=== PATIENT | female | born 1990 | race American Indian/Alaskan Native ===

== ENCOUNTER 2017-05-22 09:55 | Emergency (ER) | payer OTHER ==
[2017-05-22 11:24] LABS: Basophils % (Auto) 0.6 % (0.0-1.8); Eosinophils % (Auto) 0.7 % (0.0-4.3); Hemoglobin 11.9 gm/dl (10.1-14.3); Lymphocytes # (Auto) 1.7 K/mm3 (1.2-5.4); Lymphocytes % (Auto) 24.3 % (13.4-35.0); Monocytes # (Auto) 0.6 K/mm3 (0.0-0.8); Monocytes % (Auto) 9.1 % (0.0-7.3)
[2017-05-22 11:34] LABS: INR 0.9 (0.87-1.13)
[2017-05-22 11:36] LABS: Hematocrit 38.9 % (30.3-42.9); Mean Corpuscular HGB Conc 31 % (30-34); Mean Corpuscular Hemoglobin 21 pg (28-32); Mean Corpuscular Volume 69 fl (79-97); Platelet Count 395 K/mm3 (140-440); Red Blood Count 5.65 M/mm3 (3.65-5.03)
[2017-05-22 11:52] LABS: BUN/Creatinine Ratio 12; Blood Urea Nitrogen 11 mg/dL (7-17); Hemolysis Index 16
--- NOTE | 2017-05-22 12:09 | Emergency Department Report ---
ED Syncope HPI - General Chief Complaint: Syncope Stated Complaint: SYNCOPE Time Seen by Provider: 05/22/17 10:21 Source: patient Exam Limitations: no limitations - History of Present Illness Initial Comments: 27-year-old female with no significant past medical history presents to the hospital with complains of syncopal episode after a cardio workout. Patient has not worked out in 1 year. She did not have anything or eat or drink prior to her workout. She was a treadmill for 30 minutes without chest pain or shortness of breath. After her workout patient felt lightheaded and had a syncopal episode. She denies headache, chest pain, shortness of breath, abdominal pain, nausea, vomiting, heavy vaginal bleeding, melena, or hematochezia. Patient complains of generalized fatigue and weakness at this time without pain. No history of PE/DVT, calf tenderness, leg edema or asymmetry, or control pill use reported. Patient received approximately 600 mL of normal saline prior to arrival via EMS - Related Data Allergies/Adverse Reactions: Allergies No Known Allergies Allergy (Unverified 05/22/17 10:24) ED Review of Systems ROS: Stated complaint: SYNCOPE Other details as noted in HPI Comment: All other systems reviewed and negative Other: Constitutional: No fevers chill Eyes: No eye pain visual changes ENT: No ear pain or throat pain Neck: Denies pain Respiratory: Denies cough wheezing shortness of breath Cardiovascular: Denies chest pain, palpitations GI: Denies abdominal pain, nausea, vomiting, diarrhea : Denies dysura Musculoskeletal: Denies back pain, joint swelling Skin: Denies rash, lesions, erythema Neurologic: Denies headache, numbness, weakness Psychiatric: Denies suicidal ideation, hallucinations ED Past Medical Hx - Past Medical History Previous Medical History?: Yes Hx Hypertension: Yes - Social History Smoking Status: Never Smoker Substance Use Type: None ED Physical Exam - General Limitations: No Limitations - Other Other exam information: General: No limitations, patient is alert in no acute distress Head exam: Atraumatic, normocephalic Eyes exam: Normal appearance, pupils equal reactive to light ENT: Moist mucous membrane, normal oropharynx Neck exam: Normal inspection, full range of motion, no meningismus nontender Respiratory exam: Clear to auscultation bilateral, no wheezes, rales, crackles Cardiovascular: Normal rate and rhythm, normal heart sounds Abdomen: Soft, nondistended, and nontender, with normal bowel sounds, no rebound, or guarding Extremity: Full range of motion normal inspection no deformity Back: Normal Inspection, full range of motion, no tenderness Neurologic: Alert, oriented x3, cranial nerves intact, no motor or sensory deficit Psychiatric: normal affect, normal mood Skin: Warm, dry, intact ED Course Vital Signs 05/22/17 10:05 Temperature 97.9 F Pulse Rate 93 H Blood Pressure 107/84 O2 Sat by Pulse 99 Oximetry ED Medical Decision Making - Lab Data Result diagrams: 05/22/17 11:10 05/22/17 11:10 Lab Results 05/22/17 05/22/17 05/22/17 Range/Units 11:10 11:10 11:10 WBC 6.8 (4.5-11.0) K/mm3 RBC 5.65 H (3.65-5.03) M/mm3 Hgb 11.9 (10.1-14.3) gm/dl Hct 38.9 (30.3-42.9) % MCV 69 L (79-97) fl MCH 21 L (28-32) pg MCHC 31 (30-34) % RDW 15.0 (13.2-15.2) % Plt Count 395 (140-440) K/mm3 Lymph % (Auto) 24.3 (13.4-35.0) % [place] % (Auto) 9.1 H (0.0-7.3) % Eos % (Auto) 0.7 (0.0-4.3) % Baso % (Auto) 0.6 (0.0-1.8) % Lymph # 1.7 (1.2-5.4) K/mm3 [place] # 0.6 (0.0-0.8) K/mm3 Eos # 0.0 (0.0-0.4) K/mm3 Baso # 0.0 (0.0-0.1) K/mm3 Seg Neutrophils % 65.3 (40.0-70.0) % Seg Neutrophils # 4.4 (1.8-7.7) K/mm3 PT 12.6 (12.2-14.9) Sec. INR 0.90 (0.87-1.13) Sodium 136 L (137-145) mmol/L Potassium 4.2 (3.6-5.0) mmol/L Chloride 99.9 (98-107) mmol/L Carbon Dioxide 21 L (22-30) mmol/L Anion Gap 19 mmol/L BUN 11 (7-17) mg/dL Creatinine 0.9 (0.7-1.2) mg/dL Estimated GFR > 60 ml/min BUN/Creatinine Ratio 12 % Glucose 127 H (65-100) mg/dL Calcium 9.0 (8.4-10.2) mg/dL HCG, Qual (Negative) 05/22/17 Range/Units 11:10 WBC (4.5-11.0) K/mm3 RBC (3.65-5.03) M/mm3 Hgb (10.1-14.3) gm/dl Hct (30.3-42.9) % MCV (79-97) fl MCH (28-32) pg MCHC (30-34) % RDW (13.2-15.2) % Plt Count (140-440) K/mm3 Lymph % (Auto) (13.4-35.0) % [place] % (Auto) (0.0-7.3) % Eos % (Auto) (0.0-4.3) % Baso % (Auto) (0.0-1.8) % Lymph # (1.2-5.4) K/mm3 [place] # (0.0-0.8) K/mm3 Eos # (0.0-0.4) K/mm3 Baso # (0.0-0.1) K/mm3 Seg Neutrophils % (40.0-70.0) % Seg Neutrophils # (1.8-7.7) K/mm3 PT (12.2-14.9) Sec. INR (0.87-1.13) Sodium (137-145) mmol/L Potassium (3.6-5.0) mmol/L Chloride (98-107) mmol/L Carbon Dioxide (22-30) mmol/L Anion Gap mmol/L BUN (7-17) mg/dL Creatinine (0.7-1.2) mg/dL Estimated GFR ml/min BUN/Creatinine Ratio % Glucose (65-100) mg/dL Calcium (8.4-10.2) mg/dL HCG, Qual Negative (Negative) ua reviewed ddimer neg - EKG Data -: EKG Interpreted by Me EKG shows normal: sinus rhythm - Medical Decision Making Syncope Likely due to the fact that patient did not eat or drink anything prior to her first workout in 1 year. Symptoms improved with IV fluids (2 L NS) Tolerating ambulation in the ED without difficulty Tolerating by mouth intake and was fed prior to discharge ddimer neg - Differential Diagnosis anemia, dehydration, vasovagal, arrhythmia Critical Care Time: No Critical care attestation.: If time is entered above; I have spent that time in minutes in the direct care of this critically ill patient, excluding procedure time. ED Disposition Clinical Impression: Syncope, Dehydration Disposition: DC- TO HOME OR SELFCARE Is pt being admited?: No Does the pt Need Aspirin: No Condition: Stable Instructions: Dehydration (ED), Syncope (ED) Additional Instructions: Continue to drink plenty of fluids. Make sure you eat appropriately. Return if symptoms worsen Referrals: PRIMARY CARE, [Primary Care Provider] - 3-5 Days TYLER MANNING JR, MD [Staff Physician] - 3-5 Days (primary care doctor) Time of Disposition: 14:46
[2017-05-22 13:13] LABS: Bacteria,Urine 1+ /HPF (Negative); Bilirubin,Urine NEG (Negative); Blood,Urine NEG (Negative); Color,Urine Yellow (Yellow); Hyaline Casts,Urine 33 /LPF; Mucus,Urine 2+ /HPF; Urobilinogen,Urine < 2.0 mg/dL (<2.0)
[2017-05-22] MEDS ORDERED: NACL 0.9% 1000 ML 1,000 ML IV ONE (13:28)
[2017-05-22 15:00] VITALS: BP 118/86
== END 2017-05-22 15:01 | disposition home or self-care (01) ==
LOC: ED 09:55
DX: R55 Syncope and collapse (principal); E86.0 Dehydration; R53.1 Weakness; R53.83 Other fatigue; I10 Essential (primary) hypertension
CPT/HCPCS: 36415; 80048; 81001; 84703; 85025; 85379; 85610; 93005; 93010; 96360; 99284; J7030

== ENCOUNTER 2018-04-26 11:21 | Emergency (ER) | payer BC, OTHER ==
[2018-04-26 11:44] VITALS: BP 123/76
[2018-04-26] MEDS ORDERED: ROBITUSSIN PO ONE (11:46)
--- NOTE | 2018-04-26 11:47 | Emergency Department Report ---
Blank Doc - Documentation Documentation: 28 y o female PMH of HTN and depresseion contolled with medication cc of CP, SOB. yellow productive Cough x 1 week EXam: no acute, rsp distress CTAB, No use of assesory muscles, no wheezing Plan Cough suppresnt CXR EKG done: no acute finding FAstrack eval
--- NOTE | 2018-04-26 12:26 | XRay Report ---
ROUTINE CHEST, TWO VIEWS: HISTORY: Chest pain with cough. The trachea, heart, mediastinal contour, lung liu and bony thorax are unremarkable. IMPRESSION: Unremarkable chest x-ray.
--- NOTE | 2018-04-26 13:18 | Emergency Department Report ---
ED General Adult HPI - General Chief complaint: Chest Pain Stated complaint: SOB/CHEST PAIN/COUGH Time Seen by Provider: 04/26/18 11:41 Source: patient Mode of arrival: Ambulatory Limitations: No Limitations - History of Present Illness Initial comments: Patient presents to emergency department with a chief complaint of a cough since last . Patient describes the cough has been dry in nature and does endorse sick contacts or week ago. Patient states that she is coughing so bad at night that it's causing her chest to hurt. -: Gradual Severity scale (0 -10): 4 Quality: aching Consistency: constant Improves with: none Worsens with: none Associated Symptoms: denies other symptoms Treatments Prior to Arrival: other ([id number] medications) - Related Data Previous Rx's Medication Instructions Recorded Last Taken Type ALBUTEROL Inhaler (OR & NICU) 2 puff IH Q4HR PRN #1 inhalation 04/26/18 Unknown Rx [ProAir HFA Inhaler] Benzonatate [Tessalon Perles] 100 mg PO Q8HR PRN #20 capsule 04/26/18 Unknown Rx Ibuprofen [Motrin] 800 mg PO Q8HR PRN #30 tablet 04/26/18 Unknown Rx guaiFENesin/CODEINE [Robitussin AC] 5 ml PO Q12HR PRN #180 oral.liqd 04/26/18 Unknown Rx predniSONE [Deltasone] 20 mg PO DAILY #15 tablet 04/26/18 Unknown Rx traMADol [Ultram] 50 mg PO Q6HR PRN #24 tablet 04/26/18 Unknown Rx Allergies Allergy/AdvReac Type Severity Reaction Status Date / Time No Known Allergies Allergy Unverified 05/22/17 10:24 ED Review of Systems ROS: Stated complaint: SOB/CHEST PAIN/COUGH Other details as noted in HPI Comment: All other systems reviewed and negative Constitutional: denies: chills, fever Eyes: denies: eye pain, eye discharge, vision change ENT: denies: ear pain, throat pain Respiratory: cough. denies: shortness of breath, wheezing Cardiovascular: denies: chest pain, palpitations Endocrine: no symptoms reported Gastrointestinal: denies: abdominal pain, nausea, diarrhea Genitourinary: denies: urgency, dysuria, discharge Musculoskeletal: denies: back pain, joint swelling, arthralgia Skin: denies: rash, lesions Neurological: denies: headache, weakness, paresthesias Psychiatric: denies: anxiety, depression Hematological/Lymphatic: denies: easy bleeding, easy bruising ED Past Medical Hx - Past Medical History Previous Medical History?: Yes Hx Hypertension: Yes Hx Psychiatric Treatment: Yes (depression) - Surgical History Past Surgical History?: Yes Additional Surgical History: tonsilectomy - Social History Smoking Status: Never Smoker Substance Use Type: None - Medications Home Medications: Home Medications Medication Instructions Recorded Confirmed Last Taken Type ALBUTEROL Inhaler (OR & NICU) 2 puff IH Q4HR PRN #1 inhalation 04/26/18 Unknown Rx [ProAir HFA Inhaler] Benzonatate [Tessalon Perles] 100 mg PO Q8HR PRN #20 capsule 04/26/18 Unknown Rx Ibuprofen [Motrin] 800 mg PO Q8HR PRN #30 tablet 04/26/18 Unknown Rx guaiFENesin/CODEINE [Robitussin AC] 5 ml PO Q12HR PRN #180 oral.liqd 04/26/18 Unknown Rx predniSONE [Deltasone] 20 mg PO DAILY #15 tablet 04/26/18 Unknown Rx traMADol [Ultram] 50 mg PO Q6HR PRN #24 tablet 04/26/18 Unknown Rx ED Physical Exam - General Limitations: No Limitations General appearance: alert, in no apparent distress - Head Head exam: Present: atraumatic, normocephalic - Eye Eye exam: Present: normal appearance, PERRL, EOMI - ENT ENT exam: Present: mucous membranes moist - Neck Neck exam: Present: normal inspection - Respiratory Respiratory exam: Present: normal lung sounds bilaterally, wheezes. Absent: respiratory distress, rales - Cardiovascular Cardiovascular Exam: Present: regular rate, normal rhythm. Absent: systolic mu rmur, diastolic murmur, rubs, gallop - GI/Abdominal GI/Abdominal exam: Present: soft, normal bowel sounds. Absent: distended, tenderness - Extremities Exam Extremities exam: Present: normal inspection - Back Exam Back exam: Present: normal inspection - Neurological Exam Neurological exam: Present: alert, oriented X3, CN II-XII intact. Absent: motor sensory deficit - Psychiatric Psychiatric exam: Present: normal affect, normal mood - Skin Skin exam: Present: warm, dry, intact, normal color. Absent: rash ED Course Vital Signs 04/26/18 11:41 Temperature 98.4 F Pulse Rate 75 Respiratory 22 Rate Blood Pressure 123/76 O2 Sat by Pulse 99 Oximetry ED Medical Decision Making - Radiology Data Radiology results: report reviewed - Medical Decision Making Discussed results and plan of care with patient Critical care attestation.: If time is entered above; I have spent that time in minutes in the direct care of this critically ill patient, excluding procedure time. ED Disposition Clinical Impression: Bronchitis Disposition: DC-01 TO HOME OR SELFCARE Is pt being admited?: No Does the pt Need Aspirin: No Condition: Stable Instructions: Acute Bronchitis (ED) Additional Instructions: return if worse Referrals: SCOTT BECKMAN MD [Primary Care Provider] - 3-5 Days Time of Disposition: 13:17
== END 2018-04-26 13:28 | disposition home or self-care (01) ==
LOC: ED 11:21
DX: J40 Bronchitis, not specified as acute or chronic (principal); I10 Essential (primary) hypertension; F32.9 Major depressive disorder, single episode, unspecified
CPT/HCPCS: 71046; 93005; 93010

== ENCOUNTER 2018-12-18 23:00 | Emergency (ER) | payer BC ==
--- NOTE | 2018-12-19 00:47 | Emergency Department Report ---
ED Back Pain/Injury HPI - General Chief Complaint: Back Pain/Injury Stated Complaint: LT SIDE PAIN LOWER BACK PAIN 11 WEEKS PREG Time Seen by Provider: 12/19/18 00:44 Source: patient Limitations: No Limitations - History of Present Illness Initial Comments: 28 year old -Dominican female who reports she is 11 weeks comes in acute on onset of left pain that radiates to her left abdomen and down her left leg. Patient denies any vaginal bleeding no injury no dysuria no blood in the urine. Patient is 1 para 0. She reports that the pain is crampy stabbing and constant. Her last menstrual period was 09/20/2018. Patient has no allergies to medications. She denies any injury. MD Complaint: back pain -: This evening Time: 17:00 Similar Symptoms Previously: No Radiation: abdomen Severity: severe Severity scale (0 -10): 10 Quality: sharp, stabbing Consistency: constant Improves With: none Worsens With: none Associated Symptoms: nausea/vomiting - Related Data Previous Rx's Medication Instructions Recorded Last Taken Type ALBUTEROL Inhaler (OR & NICU) 2 puff IH Q4HR PRN #1 inhalation 04/26/18 Unknown Rx [ProAir HFA Inhaler] Benzonatate [Tessalon Perles] 100 mg PO Q8HR PRN #20 capsule 04/26/18 Unknown Rx Ibuprofen [Motrin] 800 mg PO Q8HR PRN #30 tablet 04/26/18 Unknown Rx guaiFENesin/CODEINE [Robitussin AC] 5 ml PO Q12HR PRN #180 oral.liqd 04/26/18 Unknown Rx predniSONE [Deltasone] 20 mg PO DAILY #15 tablet 04/26/18 Unknown Rx traMADol [Ultram] 50 mg PO Q6HR PRN #24 tablet 04/26/18 Unknown Rx Acetaminophen [Acetaminophen ER] 650 mg PO Q6H PRN #24 tablet.er 12/19/18 Unknown Rx metroNIDAZOLE [Flagyl] 500 mg PO Q8HR #21 tab 12/19/18 Unknown Rx Allergies Allergy/AdvReac Type Severity Reaction Status Date / Time No Known Allergies Allergy Unverified 05/22/17 10:24 ED Review of Systems ROS: Stated complaint: LT SIDE PAIN LOWER BACK PAIN 11 WEEKS PREG Other details as noted in HPI Comment: All other systems reviewed and negative ED Past Medical Hx - Past Medical History Previous Medical History?: Yes Hx Hypertension: Yes Hx Psychiatric Treatment: Yes (depression) - Surgical History Past Surgical History?: Yes Additional Surgical History: tonsilectomy - Social History Smoking Status: Never Smoker Substance Use Type: None - Medications Home Medications: Home Medications Medication Instructions Recorded Confirmed Last Taken Type ALBUTEROL Inhaler (OR & NICU) 2 puff IH Q4HR PRN #1 inhalation 04/26/18 Unknown Rx [ProAir HFA Inhaler] Benzonatate [Tessalon Perles] 100 mg PO Q8HR PRN #20 capsule 04/26/18 Unknown Rx Ibuprofen [Motrin] 800 mg PO Q8HR PRN #30 tablet 04/26/18 Unknown Rx guaiFENesin/CODEINE [Robitussin AC] 5 ml PO Q12HR PRN #180 oral.liqd 04/26/18 Unknown Rx predniSONE [Deltasone] 20 mg PO DAILY #15 tablet 04/26/18 Unknown Rx traMADol [Ultram] 50 mg PO Q6HR PRN #24 tablet 04/26/18 Unknown Rx Acetaminophen [Acetaminophen ER] 650 mg PO Q6H PRN #24 tablet.er 12/19/18 Unknown Rx metroNIDAZOLE [Flagyl] 500 mg PO Q8HR #21 tab 12/19/18 Unknown Rx ED Physical Exam - General Limitations: No Limitations General appearance: alert, in no apparent distress - Head Head exam: Present: atraumatic, normocephalic - Eye Eye exam: Present: normal appearance - ENT ENT exam: Present: mucous membranes moist - Neck Neck exam: Present: normal inspection - Respiratory Respiratory exam: Present: normal lung sounds bilaterally. Absent: respiratory distress - GI/Abdominal GI/Abdominal exam: Present: soft, tenderness. Absent: distended - Back Exam Back exam: Present: full ROM, CVA tenderness (L). Absent: paraspinal tenderness, vertebral tenderness - Neurological Exam Neurological exam: Present: alert, oriented X3 - Psychiatric Psychiatric exam: Present: normal affect, normal mood - Skin Skin exam: Present: warm, dry, intact, normal color. Absent: rash ED Course Vital Signs 12/18/18 12/19/18 23:04 07:21 Temperature 98.0 F Pulse Rate 100 H 88 Respiratory 18 18 Rate Blood Pressure 132/91 Blood Pressure 130/88 [Left] O2 Sat by Pulse 100 100 Oximetry ED Medical Decision Making - Lab Data Result diagrams: 12/19/18 01:19 12/19/18 01:19 - Radiology Data Radiology results: report reviewed Patient: ANGEL MARTÍNEZ MR#: [id number] : 1990 Acct:[id number] Age/Sex: 28 / F ADM Date: 12/18/18 Loc: ED Attending Dr: Ordering Physician: PERNELL CHURCH Date of Service: 12/19/18 Procedure(s): US OB <= 14 weeks fetus Accession Number(s): [id number] cc: PERNELL CHURCH ULTRASOUND OBSTETRIC INDICATION / CLINICAL INFORMATION: abd pain. Pelvic pain and cramping. Clinical Gestational Age (GA): 12 weeks 6 days TECHNIQUE: Transabdominal. COMPARISON: None available. FINDINGS: GESTATIONAL SAC: Well-defined oval shape and intrauterine in location. YOLK SAC: Not visualized. EMBRYO/FETUS: No significant abnormality. - [place]-Rump Length = 5.9 cm = 12 weeks, 3 day(s). - Heart Rate, beats per minute (if present) = 160 ADNEXA: No significant abnormality. FREE FLUID: None. ADDITIONAL FINDINGS: None. IMPRESSION: 1. Single, living intrauterine with estimated sonographic age of 12 weeks, 3 day(s). Signer Name: Francisca Parish MD Signed: 12/19/2018 3:19 AM Workstation Name: [id number] Transcribed By: DT Dictated By: Triston Parish MD Electronically Authenticated By: Triston Parish MD Signed Date/Time: 12/19/18318 DD/ 6 TD/TT: Patient: ANGEL MARTÍNEZ MR#: [id number] : 1990 Acct:[id number] Age/Sex: 28 / F ADM Date: 12/18/18 Loc: ED Attending Dr: Ordering Physician: PERNELL CHURCH Date of Service: 12/19/18 Procedure(s): US renal LT Accession Number(s): [id number] cc: PERNELL CHURCH ULTRASOUND RENAL LIMITED INDICATION / CLINICAL INFORMATION: concern for renal stone left. Left flank pain. Patient is . COMPARISON: None available. FINDINGS: RIGHT KIDNEY: Not evaluated. LEFT KIDNEY: Length = 10.9 cm. - Echogenicity: Normal. - Cortical Thickness: Normal. - Hydronephrosis: None. - Cyst or mass: No significant abnormality. - Stones: None seen. URINARY BLADDER: No significant abnormality. FREE FLUID: None. ADDITIONAL FINDINGS: None. IMPRESSION: 1. No sonographic abnormality of the left kidney. Signer Name: Francisca Parish MD Signed: 12/19/2018 7:08 AM Workstation Name: [id number] Transcribed By: ROSA M Dictated By: Triston Parish MD Electronically Authenticated By: Triston Parish MD Signed Date/Time: 12/19/18707 DD/ 5 TD/TT: - Medical Decision Making 28 year old -Domin[place] female who reports she is 11 weeks comes in acute on onset of left pain that radiates to her left abdomen and down her left leg. Patient denies any vaginal bleeding no injury no dysuria no blood in the urine. Patient is 1 para 0. She reports that the pain is crampy stabbing and constant. Her last menstrual period was 09/20/2018. Patient has no allergies to medications. She denies any injury. Renal ultrasound is negative, pelvic OB ultrasound shows intrauterine gestation about 12 weeks 5 days, urinalysis is normal. Discussed with patient she is to follow-up with her [employer]. She can take acetaminophen for pain management. She will be treated for bacterial vaginosis and to follow-up with her manager nursing. Critical care attestation.: If time is entered above; I have spent that time in minutes in the direct care of this critically ill patient, excluding procedure time. ED Disposition Clinical Impression: Back pain with left-sided radiculopathy, Bacterial vaginosis in Disposition: - TO HOME OR SELFCARE Is pt being admited?: No Does the pt Need Aspirin: No Condition: Stable Instructions: Bacterial Vaginosis (ED), Lumbar Radiculopathy (ED) Prescriptions: Acetaminophen [Acetaminophen ER] 650 mg PO Q6H PRN #24 tablet.er PRN Reason: Pain , Severe (7-10) metroNIDAZOLE [Flagyl] 500 mg PO Q8HR #21 tab Referrals: PRIMARY CARE, [Primary Care Provider] - 3-5 Days Forms: STI Treatment and Prevention
[2018-12-19] MEDS ORDERED: ACETAMINOPHEN 500 MG TAB PO ONE (01:26)
[2018-12-19 01:30] LABS: Bilirubin,Urine NEG (Negative); Blood,Urine NEG (Negative); Color,Urine Yellow (Yellow); Mucus,Urine FEW /HPF; Protein,Urine <15 mg/dL mg/dL (Negative); Urobilinogen,Urine < 2.0 mg/dL (<2.0); WBC,Urine < 1.0 /HPF (0.0-6.0)
[2018-12-19 01:31] LABS: Basophils % (Auto) 0.1 % (0.0-1.8); Eosinophils # (Auto) 0.1 K/mm3 (0.0-0.4); Eosinophils % (Auto) 1.8 % (0.0-4.3); Hematocrit 32.3 % (30.3-42.9); Hemoglobin 10.4 gm/dl (10.1-14.3); Lymphocytes # (Auto) 2.1 K/mm3 (1.2-5.4); Lymphocytes % (Auto) 28.4 % (13.4-35.0); Mean Corpuscular HGB Conc 32 % (30-34); Monocytes # (Auto) 0.6 K/mm3 (0.0-0.8); Monocytes % (Auto) 7.6 % (0.0-7.3); Platelet Count 375 K/mm3 (140-440); Red Blood Count 4.82 M/mm3 (3.65-5.03); Red Cell Distribution Width 14.7 % (13.2-15.2)
[2018-12-19 01:41] LABS: Mean Corpuscular Volume 67 fl (79-97)
[2018-12-19 01:47] LABS: Alanine Aminotransferase 9 units/L (7-56); Albumin 3.8 g/dL (3.9-5); BUN/Creatinine Ratio 16; Blood Urea Nitrogen 8 mg/dL (7-17); Calcium 9.3 mg/dL (8.4-10.2); Hemolysis Index 0
--- NOTE | 2018-12-19 03:23 | Ultrasound Report ---
ULTRASOUND OBSTETRIC INDICATION / CLINICAL INFORMATION: abd pain. Pelvic pain and cramping. Clinical Gestational Age (GA): 12 weeks 6 days TECHNIQUE: Transabdominal. COMPARISON: None available. FINDINGS: GESTATIONAL SAC: Well-defined oval shape and intrauterine in location. YOLK SAC: Not visualized. EMBRYO/FETUS: No significant abnormality. - [place]-Rump Length = 5.9 cm = 12 weeks, 3 day(s). - Heart Rate, beats per minute (if present) = 160 ADNEXA: No significant abnormality. FREE FLUID: None. ADDITIONAL FINDINGS: None. IMPRESSION: 1. Single, living intrauterine with estimated sonographic age of 12 weeks, 3 day(s). Signer Name: Francisca Parish MD Signed: 12/19/2018 3:19 AM Workstation Name: [id number]
--- NOTE | 2018-12-19 07:12 | Ultrasound Report ---
ULTRASOUND RENAL LIMITED INDICATION / CLINICAL INFORMATION: concern for renal stone left. Left flank pain. Patient is . COMPARISON: None available. FINDINGS: RIGHT KIDNEY: Not evaluated. LEFT KIDNEY: Length = 10.9 cm. - Echogenicity: Normal. - Cortical Thickness: Normal. - Hydronephrosis: None. - Cyst or mass: No significant abnormality. - Stones: None seen. URINARY BLADDER: No significant abnormality. FREE FLUID: None. ADDITIONAL FINDINGS: None. IMPRESSION: 1. No sonographic abnormality of the left kidney. Signer Name: Francisca Parish MD Signed: 12/19/2018 7:08 AM Workstation Name: [id number]
[2018-12-19 07:22] VITALS: BP 130/88
== END 2018-12-19 07:21 | disposition home or self-care (01) ==
LOC: ED 23:00
DX: O23.591 Infection of other part of genital tract in pregnancy, first trimester (principal); B96.89 Other specified bacterial agents as the cause of diseases classified elsewhere; M54.16 Radiculopathy, lumbar region; Z79.899 Other long term (current) drug therapy; O99.341 Other mental disorders complicating pregnancy, first trimester; F32.9 Major depressive disorder, single episode, unspecified; O16.1 Unspecified maternal hypertension, first trimester; Z90.89 Acquired absence of other organs; Z3A.11 11 weeks gestation of pregnancy
CPT/HCPCS: 36415; 76775; 76801; 80053; 81001; 84702; 85025; 87210; 87591; 99284